=== PATIENT | female | born 1990 | race Caucasian/White ===

== ENCOUNTER 2017-05-09 02:53 | Emergency (ER) | payer OTHER ==
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
[2017-05-09] MEDS: FENTANYL PF 100MCG/2ML VIAL IVP ONE ×2 (03:14→03:42)
[2017-05-09] MEDS: 0.9 % SODIUM CHLORIDE 1000ML 600 ML IV SCH (03:14)
== END 2017-05-09 03:53 | disposition short-term general hospital (02) ==
LOC: ER 02:53
DX: T22.211A Burn of second degree of right forearm, initial encounter (principal); T23.291A Burn of second degree of multiple sites of right wrist and hand, initial encounter; T24.211A Burn of second degree of right thigh, initial encounter; T24.221A Burn of second degree of right knee, initial encounter; T25.211A Burn of second degree of right ankle, initial encounter; X03.3XXA Fall due to controlled fire, not in building or structure, initial encounter; Y92.007 Garden or yard of unspecified non-institutional (private) residence as the place of occurrence of the external cause
CPT/HCPCS: 16025; 99285 ×2; 96374; J3010; J7030